=== PATIENT | male | born 1995 | race Caucasian/White ===

== ENCOUNTER 2017-09-13 16:44 | Emergency (ER) | payer BC ==
[~2017-09-13] VITALS: Ht 177.8 cm; Wt 66.0 kg
[2017-09-13 16:49] VITALS: TEMP 36.6; Ht 177.8 cm; Wt 66.0 kg
[2017-09-13] MEDS ORDERED: LISD60CA PO (17:10)
--- NOTE | 2017-09-13 17:14 | EMERGENCY ROOM VISIT NOTE ---
History First contact with patient: 16:54 Chief Complaint: HEAD INJURY (MINOR) Stated Complaint: HEAD PAIN,FOGGY,DEPRESSION History of Present Illness The patient is a 22 year old male who presents to the Emergency Room with complaints of a head injury that occurred this morning while he was getting in the shower. He tripped, striking his head off of the towel rack. He denies any loss of consciousness. Since the injury, he has felt depressed, foggy and slightly dizzy. He has history of depression over the last 10 years. The patient does not take any medications. He reports knowing how to cope with his depressive symptoms. He denies any suicidal or homicidal thoughts. He does not have any weapons at home. Associated with head injury, he denies any nausea or vomiting. No neck pain. He does have a mild headache. He has not taken anything for pain. Review of Systems 10 system review performed and negative unless noted in HPI or below Past Medical/Surgical History ADHD Social History Smoking Status: Never Smoker Alcohol Use: none Housing Status: lives with roommate Occupation Status: [employer] student Current/Historical Medications Scheduled Lisdexamfetamine Dimesylate (Vyvanse), 60 MG PO DAILY Physical Exam Vital Signs Date Time Temp Pulse Resp B/P (MAP) Pulse Ox O2 Delivery O2 Flow Rate FiO2 09/13/17 16:49 36.6 75 16 115/84 99 Room Air Physical Exam VITALS: Vitals are noted on the nurse's note and reviewed by myself. Vital signs stable. GENERAL: 22-year-old male, tearful in appearance, SKIN: The skin was without rashes, erythema, edema, or bruising. HEAD: Normocephalic atraumatic. EARS: External auditory canals clear, tympanic membranes pearly renteria without erythema or effusion bilaterally. EYES: Pupils equal round and reactive to light and accommodation. Conjunctivae without injection, sclerae without icterus. Extraocular movements intact. NOSE: Patent, turbinates without inflammation or discharge. No sinus tenderness. MOUTH: Mucous membranes moist. Tonsils are not enlarged. Pharynx without erythema or exudate. Uvula midline. Airway patent. Tongue does not deviate. NECK: Supple without nuchal rigidity Cervical spine is nontender. No JVD. HEART: Regular rate and rhythm without murmurs gallops or rubs. LUNGS: Clear to auscultation bilaterally without wheezes, rales or rhonchi. No accessory muscle use. MUSCULOSKELETAL: No muscle atrophy, erythema, or edema noted. Strength 5/5 throughout. NEURO: Patient was alert and oriented to person place and time. Cerebellar function intact. Cranial nerves grossly intact. Negative Romberg. Normal heel -to-toe walking. Normal sensation to touch. No focal neurological deficits. Medical Decision & Procedures ED Course The patient was seen and examined The case was discussed with my supervising physician in addition to case management The patient was seen and evaluated by the psychiatric liaison in the emergency department. The patient was reassessed. He is comfortable being discharged home. Medical Decision Differential diagnosis: Closed head injury, concussion, skull fracture, intracranial bleed, depression, suicidal thoughts This patient is a 22-year-old male that presents emergency department with complaints of a minor head injury and depressed thoughts that started today. The patient does not have any signs of significant head trauma. He is neurologically intact. I do not find imaging necessary. The patient's other concern is feeling depressed. He has dealt with depression for 10 years. I believe this is likely exacerbated by . He does not have any suicidal or homicidal thoughts. He reports having good coping mechanisms at home. He lives with roommates, and will be going home for the holidays tomorrow. I believe he is stable to be discharged home. The patient was also seen by the psychiatric liaison here in the emergency department, who is in agreement with plan. He was instructed to follow-up with his primary care physician in addition to his psychiatrist. If he has any worsening symptoms, particularly any suicidal thoughts or worsening depression, he will return immediately to the emergency department. This chart was completed in part utilizing [employer] Speech Voice Recognition software. Attempts were made to minimize the grammatical errors, random word insertions, pronoun errors and incomplete sentences. Any formal questions or concerns about the content, text or information contained within the body of this dictation should be directly addressed to the provider for clarification. Medication Reconcilliation Current Medication List: was personally reviewed by me Blood Pressure Screening Patient's blood pressure: Normal blood pressure Impression Primary Impression: Closed head injury Additional Impression: Depression Departure Information Dispostion Home / Self-Care Condition GOOD Referrals No Doctor, Assigned (PCP) Patient Instructions My [facility] Additional Instructions You were evaluated in the emergency department for a head injury and also depression. A minor concussion is possible. Please follow-up with your primary care physician as soon as possible for a recheck. Do not return to sports until you are further evaluated by a provider. Ibuprofen 400 mg and/or Tylenol 500 mg every 8 hours as needed for headache You may also alternate these medications for more effective pain relief: Ibuprofen --4 HRS--> Tylenol --4 HRS--> ibuprofen --4 HRS--> Tylenol .... Please try to get plenty of rest. Avoid alcohol and nicotine. Increase fluids over the next 48 hours. Please do not hesitate to return to the emergency department immediately for any new, worsening or concerning symptoms; especially, thoughts of harming your self or worsening depression, severe headache, confusion or vomiting Problem Qualifiers
[2017-09-13 18:21] VITALS: BP 118/78; PULSE 68; O2SAT 99
== END 2017-09-13 18:22 | disposition home or self-care (01) ==
LOC: C.EDB 16:46 → C.EDA 18:22
DX: S09.90XA Unspecified injury of head, initial encounter (principal); F32.9 Major depressive disorder, single episode, unspecified; W18.40XA Slipping, tripping and stumbling without falling, unspecified, initial encounter; W22.8XXA Striking against or struck by other objects, initial encounter; Y99.8 Other external cause status; F90.9 Attention-deficit hyperactivity disorder, unspecified type; Z79.899 Other long term (current) drug therapy

== ENCOUNTER 2017-12-26 23:12 | Emergency (ER) | payer BC ==
[~2017-12-26] VITALS: Ht 180.3 cm; Wt 55.7 kg
[~2017-12-26 23:12] MED LIST: LISD60CA PO
[2017-12-26 23:21] VITALS: TEMP 37; Ht 180.3 cm; Wt 55.7 kg
[2017-12-26] MEDS ORDERED: ACETAMINOPHEN 500 MG TAB PO STA (23:33)
[2017-12-27 00:51] VITALS: BP 126/83; PULSE 71; O2SAT 98
--- NOTE | 2017-12-27 00:51 | EMERGENCY ROOM VISIT NOTE ---
History First contact with patient: 23:27 Chief Complaint: HEAD INJURY (MINOR) Stated Complaint: CONCUSSION History of Present Illness The patient is a 22 year old male who presents to the Emergency Room with complaints of head injury tonight when he is playing soccer. 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 He had a brief LOC. Patient had 1 prior head injury. Patient claims of nausea and a mild headache described as throbbing, ranging severity 2 out of 10 to the parietal region. Nothing makes it better or worse. It does not radiate. Patient feels slightly foggy. Patient denies chest pain, dyspnea, neck pain, loss of vision, tinnitus, facial pain, dental pain, balance problems, localized weakness, tobacco alcohol or drug use. Review of Systems An 10 system review of systems was completed with positives and pertinent negatives listed in the HPI. Past Medical/Surgical History Head injury Social History Smoking Status: Never Smoker Alcohol Use: none Drug Use: none Housing Status: lives with roommate Occupation Status: [employer] student Current/Historical Medications Scheduled Lisdexamfetamine Dimesylate (Vyvanse), 60 MG PO DAILY Physical Exam Vital Signs Date Time Temp Pulse Resp B/P (MAP) Pulse Ox O2 Delivery O2 Flow Rate FiO2 12/26/17 23:21 37.0 79 20 121/84 100 Room Air Physical Exam VITALS: Vitals are noted on the nurse's note and reviewed by myself. Vital signs stable. GENERAL: Pleasant male, in no acute distress, nondiaphoretic, well-developed well-nourished. SKIN: The skin was without rashes, erythema, edema, or bruising. There is no tenting of the skin. Capillary reflex less than 2 seconds. HEAD: Normocephalic atraumatic. Face nontender to palpation Dental exam: No loose or chipped teeth EARS: External auditory canals clear, tympanic membranes pearly renteria without erythema or effusion bilaterally. EYES: Pupils equal round and reactive to light and accommodation. Conjunctivae without injection, sclerae without icterus. Extraocular movements intact. NOSE: Patent, turbinates without inflammation or discharge. No sinus tenderness. MOUTH: Mucous membranes moist. Pharynx without erythema or exudate. Uvula midline. Airway patent. Tongue does not deviate. NECK: Supple without nuchal rigidity. No lymphadenopathy. No thyromegaly. Cervical spine is nontender. No JVD. HEART: Regular rate and rhythm without murmurs gallops or rubs. LUNGS: Clear to auscultation bilaterally without wheezes, rales or rhonchi. No retractions or accessory muscle use. ABDOMEN: Positive bowel sounds x 4. Normal tympanic percussion. Soft, nontender, without masses or organomegaly. Degroot sign negative. No guarding or rebound tenderness. No CVA tenderness MUSCULOSKELETAL: No muscle atrophy, erythema, or edema noted. NEURO: Patient was alert and oriented to person place and time. Normal sensation to light and sharp touch. No focal neurological deficits. Cranial nerves II through XII grossly intact. No prior drift. Cerebellar exam intact. Medical Decision & Procedures Medications Administered Medications (Trade) Dose Ordered Sig/Kourtney Route Start Time Stop Time Status Last Admin Dose Admin Acetaminophen (Tylenol Tab) 1,000 mg NOW STAT PO 12/26/17 23:33 12/26/17 23:34 DC 12/26/17 23:42 1,000 MG ED Course Prior records/ancillary studies reviewed. Triage Nursing notes reviewed. The patient's history was concerning for traumatic head injury Differential diagnosis: Etiologies such as concussion, contusion, fracture, subdural hematoma, epidural hematoma, intraparenchymal hemorrhage, as well as other traumatic pathologies were entertained. Physical examination findings: As above. ER treatment provided: P.o. Tylenol On reassessment the patient felt better. Diagnostics interpreted by me: Imaging studies: Head CT negative for intracranial bleed per stat radiology and review It appears the patient has a head injury. Patient was neurovascularly and neurologically intact. Negative head CT. He was counseled on head injury signs and symptoms of verbalized understanding this. He is advised no sports or strenuous activity for the week do not resume these activities until symptom- free and cleared by health services. He was advised if symptoms persist to see the concussion clinic or here in the ER sooner for headache, fevers, vomiting, confusion, worsening signs or symptoms or as needed. He ambulated out of the ER without difficulties. By the evaluation outlined above emergent etiologies such as fracture, subdural hematoma, epidural hematoma, intraparenchymal hemorrhage, as well as others were deemed relatively unlikely. The pt informed about the findings as listed above. All questions were answered and pleased with the treatment. Return instructions were outlined and the patient was discharged in stable condition. Referral: The patient was referred back to their [facility] /primary care physician for follow- up in 2 to 3 days for a recheck of the current condition. The chart was completed utilizing [employer] Speech voice recognition software. Grammatical errors, random word insertions, pronoun errors, and incomplete sentences are an occassional consequence of this system due to software limitations, ambient noise, and hardware issues. Any formal questions or concerns about the content, text, or information contained within the body of this dictation should be directly addressed to the physician instruction assistant principal for clarification. Medical Decision As above Head Trauma GCS Score: 15 Medication Reconcilliation Current Medication List: was personally reviewed by me Blood Pressure Screening Patient's blood pressure: Normal blood pressure Impression Primary Impression: Closed head injury Departure Information Dispostion Home / Self-Care Condition GOOD Forms HOME CARE DOCUMENTATION FORM, School Instructions, Return To School: 1 day IMPORTANT VISIT INFORMATION Patient Instructions My [facility], ED Head Injury Closed Additional Instructions Read head injury handout and return for any symptoms. Tylenol 1000 mg as needed for pain (Maximum 3000 mg Tylenol in 24 hr period). Avoid alcohol and contact sports/activities for one week and follow up with family doctor prior to returning to these activities if still symptomatic. Ice and elevate head. If your symptoms persist more than a week then follow up with the concussion clinic. Call [phone]. Return to ER sooner for headache, fevers, confusion, worsening signs or symptoms or as needed. School Instructions Return To School: 1 day Problem Qualifiers Primary Impression: Closed head injury Encounter type: initial encounter Qualified Codes: S09.90XA - Unspecified injury of head, initial encounter
--- NOTE | 2017-12-27 07:11 | DIAGNOSTIC IMAGING REPORT ---
CT SCAN OF THE BRAIN WITHOUT IV CONTRAST CLINICAL HISTORY: Head injury. Concussion. COMPARISON STUDY: No priors. TECHNIQUE: Unenhanced axial CT scan of the brain is performed from the vertex to the skull base. A dose lowering technique was utilized adhering to the principles of ALARA. CT DOSE: 729.78 mGycm FINDINGS: Brain parenchyma: The brain parenchyma is normal in appearance. There is no hemorrhage, mass effect, or evidence of acute territorial ischemia by CT criteria. [place]-white matter is preserved. No extra-axial fluid collection is seen. Ventricles, sulci, cisterns: Normal in configuration. Intracranial vasculature: The visualized intracranial vasculature at the skull base is normal in appearance. Calvarium: There is no depressed calvarial fracture. Sinuses and mastoids: Mild mucosal thickening is seen within the sphenoid sinuses. Moderate mucosal thickening is seen in the right ethmoid sinuses and right frontal sinus. Trace because of thickening is seen in the left frontal sinus. The mastoid air cells are well pneumatized. Orbits: The bony orbits are grossly intact. IMPRESSION: No acute intracranial abnormality. Electronically signed by: Kapil Lawrence M.D. 12/27/2017 7:10 AM Dictated Date/Time: 12/27/2017 7:08 AM
== END 2017-12-27 00:52 | disposition home or self-care (01) ==
LOC: C.EDB 23:13 → C.EDA 12-27 00:52
DX: S06.9X9A Unspecified intracranial injury with loss of consciousness of unspecified duration, initial encounter (principal); W01.198A Fall on same level from slipping, tripping and stumbling with subsequent striking against other object, initial encounter; Y93.66 Activity, soccer; R40.2412 Glasgow coma scale score 13-15, at arrival to emergency department

== ENCOUNTER 2018-01-01 13:18 | Emergency (ER) | payer BC ==
[~2018-01-01] VITALS: Ht 180.3 cm; Wt 65.5 kg
[2018-01-01 13:21] VITALS: TEMP 36.7; Ht 180.3 cm; Wt 65.5 kg
--- NOTE | 2018-01-01 14:10 | EMERGENCY ROOM VISIT NOTE ---
History First contact with patient: 13:30 Chief Complaint: HEADACHE Stated Complaint: HEADACHE, NOSE DISCHARGE, POST CONCUSSION History of Present Illness The patient is a 22 year old male who presents to the Emergency Room with complaints of bilateral clear nasal drainage since a concussion on 12/26/17 (5 days ago). 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 He came to the ED that day and had a negative head CT. He was discharged home and advised to rest. He noticed the following day he had bilateral nasal drainage which was clear, but primarily coming from the left nostril. He describes the flow of it as constant , occasionally dripping back down his throat, which makes him cough and he has to spit it out. He says occasionally he has a large gush of fluid come out of the left nostril. He reports occasionally the drainage is green or yellow. He does not have any drainage now. He was concerned because he went online and saw that this could be a CSF leak. He reports his headache is still persistent. He has been taking Ibuprofen frequently which somewhat helps. 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 He reports his headache is 30% better than before and he has not had ample opportunity to rest. He reports slight visual disturbance. He denies any recurrent episodes of head injury. Review of Systems See HPI for pertinent positives & negatives. A total of 10 systems reviewed and were otherwise negative. Past Medical/Surgical History PMHx: None PSHx: None Family History Patient reports no known family medical history. 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 TM's normal. Oropharynx unremarkable. Dried yellow drainage in left and right lateral nares. No sinus tenderness. EYES: PERRL. Normal conjunctiva. Sclera non-icteric. Fundi normal. EOMI NECK: Supple. No nuchal rigidity. FROM. RESPIRATORY: CTA CARDIAC: RRR. Extremities warm and well perfused. ABDOMEN: Soft, non distended. No tenderness to palpation. No rebound or guarding. No masses. MUSCULOSKELETAL: Unremarkable. EXTREMITIES: No edema. No discoloration. Gross motor strength 5/5 bilaterally. NEURO: Normal sensorium. No sensory or motor deficits noted. Gait normal. Speech normal. Cranial nerves two through 12 intact. No pronator drift. Negative Romberg. Normal rapid alternating movements. SKIN: No rash or jaundice noted. LYMPH: No adenopathy. Medical Decision & Procedures Laboratory Results Test 01/01/18 14:39 ED Course 13:50: I saw the patient in room C5. A complete history and physical were performed. 13:55: I discussed the case with Dr. Siddiqui, Attending Physician. 14:30: I discussed the case with Dr. Aguilar, Neurosurgery attending at [facility]. The patient was accepted for transfer. The patient was informed of this. 15:00: [place] [facility] patient will be transferred by BLS. A CBC and CMP were ordered and Saline lock placed. Medical Decision 22 yo M with head injury a week ago who presents with persistent bilateral clear nasal drainage. Differential includes: CSF leak, allergic rhinitis, meningitis, sepsis, electrolyte abnormality, sinus infection. The patient had a recent CT Head which was negative for intracranial bleed. The patient was concerned about a CSF leak in particular. Initially he did not have any drainage upon evaluation to test for presence of CSF. Later, he did report he had some drainage but he placed it into a tissue. He did not have any fevers, neck stiffness, or other concerning signs for infection. We discussed the case with Dr Aguilar of [facility] [place] [place] from the area, and there is no Neurosurgery locally. Dr Aguilar said his story was concerning for a CSF leak and recommended transfer. The patient was accepted to [facility]. Impression Primary Impression: CSF leak Departure Information Dispostion Transfer Acute Care Facility Condition FAIR Referrals [facility] (PCP) Patient Instructions My [facility]
[2018-01-01 15:36] LABS: ALBUMIN 4.4 gm/dl (3.4-5.0); CREATININE 0.97 mg/dl (0.60-1.40); POTASSIUM 4.4 mmol/L (3.5-5.1)
[2018-01-01 15:40] LABS: TOTAL PROTEIN 8.5 gm/dl (6.4-8.2)
[2018-01-01 16:04] LABS: BASO % 0.2 %; BASO ABS # 0.02 K/uL (0-0.2); EOS % 0.8 %; EOS ABS # 0.08 K/uL (0-0.5); HEMATOCRIT 45.4 % (42-52); HEMOGLOBIN 16.3 g/dL (14.0-18.0); IG# 0.01 K/uL (0.00-0.02); LYMPH % 15.7 %; LYMPH ABS # 1.53 K/uL (1.2-3.4); MEAN CELL VOLUME 87.8 fL (80-100); MEAN CORPUSCULAR HEMOGLOBIN 31.5 pg (25-34); MEAN CORPUSCULAR HGB CONC 35.9 g/dl (32-36); MEAN PLATELET VOLUME 9.8 fL (7.4-10.4); MONO % 7.4 %; MONO ABS # 0.72 K/uL (0.11-0.59); NEUT % 75.8 %; NEUT ABS # 7.39 K/uL (1.4-6.5); PLATELET COUNT 219 K/uL (130-400); RED CELL DISTRIBUTION WIDTH CV 12.3 % (11.5-14.5); RED CELL DISTRIBUTION WIDTH SD 39.5 fL (36.4-46.3); WHITE BLOOD COUNT 9.75 K/uL (4.8-10.8)
[2018-01-01 18:28] VITALS: BP 113/73; PULSE 76; O2SAT 100
--- NOTE | 2018-01-01 19:54 | EMERGENCY ROOM VISIT NOTE ---
History Report prepared by Scribe: Nawaf Apodaca Under the Supervision of: Dr. Placido Siddiqui D.O. First contact with patient: 13:30 Chief Complaint: HEADACHE Stated Complaint: HEADACHE, NOSE DISCHARGE, POST CONCUSSION History of Present Illness The patient is a 22 year old male who presents to the Emergency Room with concerns over a clear drainage from his nose that he first noticed roughly 4 days ago. The patient states that he was in the Emergency Department 5 days ago for a concussion following an accident while playing soccer. An opposing player tripped him and he flipped through the air and landed on his head on a turf playing surface. Since his discharged his headaches have been worsening. He describes the pain as "sharp and stabbing." He rates the severity of his headache as a 6/10 in severity, which improves to a 4/10 in severity with Tylenol. The patient is concerned over the dripping from his nose as he "Googled " his symptoms and found that he could have a possible CSF leak. The dripping has been present from both nostrils, but mostly the left. It is also draining down the back of his throat. The patient denies any change in vision, fevers, chest pain, shortness of breath, nausea, vomiting, diarrhea, pain with urination , and melena. Source of History: patient Onset: 4 days ago Position: nose Quality: other (draining from nose) Timing: worsening (headaches) Associated Symptoms: + headache, No nausea, No vomiting Review of Systems See HPI for pertinent positives & negatives. A total of 10 systems reviewed and were otherwise negative. Past Medical & Surgical Hx of concussion Family History Patient reports no known family medical history. Social History Smoking Status: Never Smoker Alcohol Use: none Drug Use: none Housing Status: lives with roommate Occupation Status: [employer] student Current/Historical Medications Scheduled Lisdexamfetamine Dimesylate (Vyvanse), 60 MG PO DAILY Allergies Coded Allergies: No Known Allergies (Unverified , 12/26/17) Physical Exam Vital Signs Date Time Temp Pulse Resp B/P (MAP) Pulse Ox O2 Delivery O2 Flow Rate FiO2 01/01/18 18:28 76 18 113/73 100 Room Air 01/01/18 17:33 78 20 118/74 100 Room Air 01/01/18 15:19 75 20 117/75 99 Room Air 01/01/18 13:21 36.7 86 20 139/70 99 Room Air Physical Exam GENERAL: Sitting up in bed, alert, well appearing, well nourished, no distress, non-toxic EYE EXAM: normal conjunctiva. PERRL and EOM's grossly intact. NOSE: There is yellow dried rhinorrhea bilaterally. EARS: TMs are clear bilaterally. OROPHARYNX: no exudate, no erythema, lips, buccal mucosa, and tongue normal and mucous membranes are moist NECK: supple, no nuchal rigidity, no adenopathy, non-tender LUNGS: Clear to auscultation. Normal chest wall mechanics HEART: no murmurs, S1 normal and S2 normal ABDOMEN: abdomen soft, non-tender, normo-active bowel sounds, no masses, no rebound or guarding. BACK: Back is symmetrical on inspection and there is no deformity, no midline tenderness, no CVA tenderness. SKIN: no rashes and no bruising UPPER EXTREMITIES: upper extremities are grossly normal. LOWER EXTREMITIES: No pitting edema. NEURO EXAM: Normal sensorium, cranial nerves II-XII grossly intact, normal speech, no gross weakness of arms, no gross weakness of legs. Medical Decision & Procedures Laboratory Results 01/01/18 14:58 Red Blood Count 5.17, Mean Corpuscular Volume 87.8, Mean Corpuscular Hemoglobin 31.5, Mean Corpuscular Hemoglobin Concent 35.9, Mean Platelet Volume 9.8, Neutrophils (%) (Auto) 75.8, Lymphocytes (%) (Auto) 15.7, Monocytes (%) (Auto) 7.4, Eosinophils (%) (Auto) 0.8, Basophils (%) (Auto) 0.2, Neutrophils # (Auto) 7.39, Lymphocytes # (Auto) 1.53, Monocytes # (Auto) 0.72, Eosinophils # (Auto) 0.08, Basophils # (Auto) 0.02 01/01/18 14:58 Test 01/01/18 14:58 White Blood Count 9.75 K/uL (4.8-10.8) Red Blood Count 5.17 M/uL (4.7-6.1) Hemoglobin 16.3 g/dL (14.0-18.0) Hematocrit 45.4 % (42-52) Mean Corpuscular Volume 87.8 fL (80-100) Mean Corpuscular Hemoglobin 31.5 pg (25-34) Mean Corpuscular Hemoglobin Concent 35.9 g/dl (32-36) Platelet Count 219 K/uL (130-400) Mean Platelet Volume 9.8 fL (7.4-10.4) Neutrophils (%) (Auto) 75.8 % Lymphocytes (%) (Auto) 15.7 % Monocytes (%) (Auto) 7.4 % Eosinophils (%) (Auto) 0.8 % Basophils (%) (Auto) 0.2 % Neutrophils # (Auto) 7.39 K/uL (1.4-6.5) Lymphocytes # (Auto) 1.53 K/uL (1.2-3.4) Monocytes # (Auto) 0.72 K/uL (0.11-0.59) Eosinophils # (Auto) 0.08 K/uL (0-0.5) Basophils # (Auto) 0.02 K/uL (0-0.2) RDW Standard Deviation 39.5 fL (36.4-46.3) RDW Coefficient of Variation 12.3 % (11.5-14.5) Immature Granulocyte % (Auto) 0.1 % Immature Granulocyte # (Auto) 0.01 K/uL (0.00-0.02) Anion Gap 7.0 mmol/L (3-11) Est Creatinine Clear Calc Drug Dose 110.7 ml/min Estimated GFR () 127.9 Estimated GFR (Non- 110.4 BUN/Creatinine Ratio 18.5 (10-20) Calcium Level 10.0 mg/dl (8.5-10.1) Total Bilirubin 0.3 mg/dl (0.2-1) Aspartate Amino Transf (AST/SGOT) 25 U/L (15-37) Alanine Aminotransferase (ALT/SGPT) 29 U/L (12-78) Alkaline Phosphatase 78 U/L (45-117) Total Protein 8.5 gm/dl (6.4-8.2) Albumin 4.4 gm/dl (3.4-5.0) Globulin 4.1 gm/dl (2.5-4.0) Albumin/Globulin Ratio 1.1 (0.9-2) Laboratory results per my review. ED Course ED COURSE: Vital signs were reviewed and showed normal vitals. The patients medical record was reviewed The above diagnostic studies were performed and reviewed. ED treatments and interventions as stated above. 1344: The patient was evaluated in room C5. A complete history and physical examination was performed. 1452: The Resident Physician discussed the case with Dr. Daniele Goss. He will accept the patient to [place]. 1636: The case management associate has informed me that transportation for the patient will not be ready until 193. 1653: Upon reevaluation, the patient is doing well.I discussed my findings with the patient and he understands and agrees with the treatment plan. Based on the patients age, coexisting illnesses, exam and lab findings the decision to treat as an inpatient was made. The patient remained stable while under my care. The patient appeared well at the time of transfer The patient will be evaluated for further management at [facility] Medical Decision Differential Diagnosis includes but is not limited to headache, CSF clemencia, tension headache, cluster headache, migraine, subarachnoid hemorrhage, meningitis, mass, central venous thrombus, concussion, trauma and epidural/ subdural hemorrhage. Patient is a 22-year-old male that presents to ER following a concussion this past Sunday. 2 days after this incident he has had intermittent clear fluid leaking/draining from his nose. He also admits to some URI symptoms. He is concern for CSF leak. He was seen independently in the resident. CBC along with BMP, LFTs and bilirubin was unremarkable. Discussed with neurosurgery from [place] where this gentleman is from. They recommended transferring further evaluation. Throughout his stay in the ER there is no clear drainage that we are able to obtain. I did not attempt to reimage him as he will likely need to be imaged down there. Patient was transferred via BLS as he was completely stable. Medication Reconcilliation Current Medication List: was personally reviewed by me Blood Pressure Screening Patient's blood pressure: Normal blood pressure Consults Time Called: 1441 Consulting Physician: Dr. Daniele Morocho Neurology Returned Call: [phone] The Resident Physician discussed the case with Dr. Daniele Goss. He will accept the patient to [place]. Impression Primary Impression: CSF leak Scribe Attestation The scribe's documentation has been prepared under my direction and personally reviewed by me in its entirety. I confirm that the note above accurately reflects all work, treatment, procedures, and medical decision making performed by me. Departure Information Dispostion Transfer Acute Care Facility ([facility]) Referrals [facility] (PCP) Patient Instructions My [facility]
== END 2018-01-01 18:41 | disposition short-term general hospital (02) ==
LOC: C.EDB 13:20 → C.EDC 18:41
DX: G96.0 Cerebrospinal fluid leak (principal); Z87.828 Personal history of other (healed) physical injury and trauma